=== PATIENT | male | born 1985 | race American Indian/Alaskan Native ===

== ENCOUNTER 2016-12-18 03:57 | Emergency (ER) | payer MEDICAID ==
[2016-12-18 04:07] VITALS: BP 141/90
--- NOTE | 2016-12-18 07:35 | XRay Report ---
ROUTINE CHEST, TWO VIEWS: HISTORY: Cough. The trachea, heart, mediastinal contour, lung mcnamara and bony thorax are unremarkable. IMPRESSION: Unremarkable chest x-ray.
--- NOTE | 2016-12-18 07:43 | Emergency Department Report ---
Chief Complaint: Dyspnea/Respdistress Stated Complaint: SOB Time Seen by Provider: 12/18/16 07:26 - Exam Vital Signs: Vital Signs 12/18/16 04:04 Temperature 98.7 F Pulse Rate 72 Respiratory 18 Rate Blood Pressure 141/90 O2 Sat by Pulse 95 Oximetry MSE screening note: Focused history and physical exam performed. Due to findings the following was ordered: ED Disposition for MSE Condition: Stable Referrals: PRIMARY CARE, [Primary Care Provider] - 3-5 Days
--- NOTE | 2016-12-18 08:39 | Emergency Department Report ---
HPI - General Chief Complaint: Dyspnea/Respdistress Time Seen by Provider: 12/18/16 07:26 - [facility] HPI: Patient is a 31-year-old male presents to ED complaining shortness of breath and coughing 1 week. Patient states he has no history of asthma. Patient's has had bronchitis in the past. Patient denies fevers chills/nausea/vomiting chest pain, dizziness, headache. ED Past Medical Hx - Past Medical History Previous Medical History?: No - Surgical History Past Surgical History?: No - Social History Smoking Status: Current Every Day Smoker Substance Use Type: None - Medications Home Medications: Home Medications Medication Instructions Recorded Confirmed Last Taken Type guaiFENesin [Robitussin] 200 mg PO Q6HR #30 tablet 12/18/16 Unknown Rx ED Review of Systems ROS: Stated complaint: SOB Other details as noted in HPI Constitutional: denies: chills, fever Eyes: denies: eye pain, eye discharge, vision change ENT: denies: ear pain, throat pain Respiratory: denies: cough, shortness of breath, wheezing Cardiovascular: denies: chest pain, palpitations Endocrine: no symptoms reported Gastrointestinal: denies: abdominal pain, nausea, diarrhea Genitourinary: denies: urgency, dysuria Musculoskeletal: denies: back pain, joint swelling, arthralgia Skin: denies: rash, lesions Neurological: denies: headache, weakness, paresthesias Psychiatric: denies: anxiety, depression Hematological/Lymphatic: denies: easy bleeding, easy bruising Physical Exam - Physical Exam Vital Signs: Vital Signs 12/18/16 04:04 Temperature 98.7 F Pulse Rate 72 Respiratory 18 Rate Blood Pressure 141/90 O2 Sat by Pulse 95 Oximetry Physical Exam: GENERAL: Alert and oriented x3, no apparent distress, Normal Gait, atraumatic. HEAD: Head is normocephalic and a-traumatic. EYES: Extra ocular muscles are intact. Pupils are equal, round, and reactive to light and accommodation. EARS: symetrical, atraumatic, non tender, ear canal clear and moderate cerumen, tympanic membrance non inflamed. gross auditory nml bilaterally. NOSE: Nose symetrical, Nontender,Nares appeared normal. MOUTH:Mouth is well hydrated and without lesions. Tonsils nonerythematous or swollen, Uvula midline, Tongue not elevated. Mucous membranes are moist. Posterior pharynx clear, no exudate or lesions. Patent airways. NECK: Supple. Non edematous, No carotid bruits. No lymphadenopathy or thyromegaly. No C-spine tenderness LUNGS: Symetrical with respiration, No wheezing, no rales or crackles, CTAB. HEART: S1, S2 present, regular rate and rhythm without murmur, no rubs, no gallops. Non tender to palpation PSYCHIATRIC: Mood is congruent with affect, denies suicidal or homicidal ideations. SKIN: Warm and dry, No lesions, No ulceration or induration present. ED Course Vital Signs 12/18/16 04:04 Temperature 98.7 F Pulse Rate 72 Respiratory 18 Rate Blood Pressure 141/90 O2 Sat by Pulse 95 Oximetry ED Medical Decision Making - Medical Decision Making 31-year-old male presents with bronchitis Patient can speak clear sentences, is no respiratory distress Patient was administered prednisone and Robitussin ED Chest x-ray obtained, chest x-ray reveals unremarkable Discussed this findings with the patient. Discussed patient take medications as prescribed. Discussed worsening symptoms to follow-up with the primary care physician. Vital signs are normal patient is in no distress Critical care attestation.: If time is entered above; I have spent that time in minutes in the direct care of this critically ill patient, excluding procedure time. ED Disposition Clinical Impression: Bronchitis Disposition: DC-01 TO HOME OR SELFCARE Is pt being admited?: No Does the pt Need Aspirin: No Condition: Stable Instructions: Chronic Bronchitis (ED) Additional Instructions: Pls follow up with pcp as referred. Prescriptions: guaiFENesin [Robitussin] 200 mg PO Q6HR #30 tablet Referrals: PRIMARY CARE [Primary Care Provider] - 3-5 Days [facility] [Outside] - 3-5 Days [facility] [Outside] - 3-5 Days [facility] [Outside] - 3-5 Days Forms: Work/School Release Form(ED) Time of Disposition: 09:00
[2016-12-18] MEDS ORDERED: DELTASONE PO ONE (09:06)
[2016-12-18] MEDS ORDERED: ROBITUSSIN PO ONE (09:06)
== END 2016-12-18 09:21 | disposition home or self-care (01) ==
LOC: ED 03:57
DX: J40 Bronchitis, not specified as acute or chronic (principal); F17.200 Nicotine dependence, unspecified, uncomplicated; Z91.013 Allergy to seafood
CPT/HCPCS: 71020; 99283; J7512

== ENCOUNTER 2016-12-31 01:49 | Emergency (ER) | payer MEDICAID ==
[2016-12-31 01:54] VITALS: BP 135/94
== END 2016-12-31 03:15 | disposition left against medical advice (07) ==
LOC: ED 01:49
DX: Z53.21 Procedure and treatment not carried out due to patient leaving prior to being seen by health care provider (principal)